=== PATIENT | male | born 1940 | race African-American/Black ===

== ENCOUNTER 2017-02-17 00:44 | Observation (INO) | payer MEDICARE ==
[~2017-02-17] VITALS: Ht 172.7 cm; Wt 92.0 kg
[2017-02-17 00:46] VITALS: BP 134/64; PULSE 62; RESP 16; TEMP 97.6; O2SAT 96
[2017-02-17] MEDS ORDERED: ASPIRIN 81 MG CHEW TAB PO ONE (01:15)
[2017-02-17] MEDS ORDERED: NITROGLYCERIN 2% OINT 1 GM PACKET TOP ONE (01:15)
[2017-02-17] MEDS ORDERED: SODIUM CHLORIDE 0.9% FLUSH 10 ML FLUSH IVF PRN (01:15)
[2017-02-17] MEDS: NITROGLYCERIN 0.4 MG SL 25 TABS/BTL SL SCH ×3 (01:15→01:25)
--- NOTE | 2017-02-17 01:27 | PD ---
HPI Chief Complaint: Chest Pain Time Seen by Provider: 01:03 Travel History International Travel<30 days: No Contact w/Intl Traveler<30days: No Traveled to known affect area: No History of Present Illness HPI The patient is a 76 year old male who presents to the [facility] emergency department with a history of chest pain that began 30 minutes ago and lasted for 10 minutes. He was watching TV when it began. The chest pain was in the left side of the chest and sharp in character. He denies any diaphoresis, radiation of pain, nausea, or shortness of breath associated with this. He reports that he has had a similar chest pain in the past, once 5 years ago and did have a stress test at that time. He denies having any stress testing done since then. He denies having any prior history of myocardial infarction or congestive heart failure. He does report having a history of hypertension and hyperlipidemia. On review of systems, he denies having any recent fevers, cough , congestion, neck pain, abdominal pain, vomiting, diarrhea, urinary symptoms, or neurologic symptoms. [facility] Past Medical History Narrative Medical The patient's past medical history is significant for prostate ca-s/p radiation therapy, hypertension, hyperlipidemia Asthma: Yes Diminished Hearing: No Hypertension: Yes Immunizations Current: Yes Past Surgical History Surgical History: No Previous Surgery Social History Alcohol Use: No Tobacco Use: No Substance Use: No Allergies-Medications (Allergen,Severity, Reaction): Coded Allergies: No Known Allergies (Unverified , 02/17/17) Review of Systems Except as stated in HPI: all other systems reviewed are Neg General / Constitutional: No: Fever Eyes: No: Visual changes HENT: No: Headaches, Congestion Cardiovascular: Positive: Chest Pain or Discomfort, No: Dyspnea on exertion Respiratory: Positive: Cough (couple years due postnasal drip.), No: Shortness of Breath Gastrointestinal: No: Nausea, Vomiting, Diarrhea, Abdominal Pain Genitourinary: No: Dysuria Musculoskeletal: No: Pain Skin: No Rash Neurologic: No: Weakness Psychiatric: No: Depression Endocrine: No: Polydipsia Hematologic/Lymphatic: No: Easy Bruising Physical Exam Narrative General: The patient is a well-developed well-nourished male in no acute distress. Head and Neck exam: Head is normocephalic atraumatic. Eyes: EOMI, pupils are equal round and reactive to light. Nose: Midline septum with pink mucous membranes Mouth: Dentition unremarkable. Moist mucus membranes. Posterior oropharynx is not erythematous. No tonsillar hypertrophy. Uvula midline. Airway patent. Neck: No palpable lymphadenopathy. No nuchal rigidity. No thyromegaly. Cardiovascular: Regular rate and rhythm without murmurs, gallops, or rubs. Lungs: Clear to auscultation bilaterally. No wheezes, rhonchi, or rales. Abdomen: Soft, without tenderness to palpation in all 4 quadrants of the abdomen. No guarding, rebound, or rigidity. Normal bowel sounds are audible. No tenderness on palpation of McBurney's point. Extremities: No clubbing, cyanosis, or edema. 2+ pulses in all 4 extremities. No calf tenderness on palpation. Back: No spinous process tenderness to palpation. No costovertebral angle tenderness to palpation. Neurologic Exam: Grossly nonfocal. Skin Exam: No rash noted. Intact skin that is warm and dry. Data Data Last Documented VS Vital Signs Date Time Temp Pulse Resp B/P (MAP) Pulse Ox O2 Delivery O2 Flow Rate FiO2 02/17/17 00:46 97.6 62 16 134/64 (87) 96 Orders Orders Electrocardiogram (02/17/17 01:10) B-Type Natriuretic Peptide (02/17/17 01:10) Ckmb (Isoenzyme) Profile (02/17/17 01:10) Complete Blood Count With Diff (02/17/17 01:10) Comprehensive Metabolic Panel (02/17/17 01:10) D-Dimer (02/17/17 01:10) Magnesium (Mg) (02/17/17 01:10) Prothrombin Time / Inr (Pt) (02/17/17 01:10) Act Partial Throm Time (Ptt) (02/17/17 01:10) Troponin I (02/17/17 01:10) Lipase (02/17/17 01:10) Chest, Single Ap (02/17/17 01:10) Ecg Monitoring (02/17/17 01:10) Bilateral Bp Monitoring (02/17/17 01:10) Iv Access Insert/Monitor (02/17/17 01:10) Oximetry (02/17/17 01:10) Oxygen Administration (02/17/17 01:10) Aspirin Chew (Aspirin Chew) (02/17/17 01:15) Nitroglycerin 2% Oint (Nitroglycerin 2% (02/17/17 01:15) Sodium Chloride 0.9% Flush (Ns Flush) (02/17/17 01:15) Nitroglycerin Sl (Nitrostat Sl) (02/17/17 01:15) CKMB (02/17/17 01:15) CKMB% (02/17/17 01:15) Sodium Chlorid 0.9% 500 Ml Inj (Ns 500 M (02/17/17 02:30) Ct Pulmonary Angiogram (02/17/17 02:24) Iodixanol 320 Inj (Rad Ct) (Visipaque 32 (02/17/17 02:58) Admit Order (Ed Use Only) (02/17/17 03:02) Labs Laboratory Tests Test 02/17/17 01:15 White Blood Count 3.8 TH/MM3 Red Blood Count 4.09 MIL/MM3 Hemoglobin 13.1 GM/DL Hematocrit 36.9 % Mean Corpuscular Volume 90.1 FL Mean Corpuscular Hemoglobin 32.0 PG Mean Corpuscular Hemoglobin Concent 35.5 % Red Cell Distribution Width 14.2 % Platelet Count 153 TH/MM3 Mean Platelet Volume 9.4 FL Neutrophils (%) (Auto) 61.6 % Lymphocytes (%) (Auto) 19.5 % Monocytes (%) (Auto) 12.4 % Eosinophils (%) (Auto) 5.9 % Basophils (%) (Auto) 0.6 % Neutrophils # (Auto) 2.4 TH/MM3 Lymphocytes # (Auto) 0.7 TH/MM3 Monocytes # (Auto) 0.5 TH/MM3 Eosinophils # (Auto) 0.2 TH/MM3 Basophils # (Auto) 0.0 TH/MM3 CBC Comment DIFF FINAL Differential Comment Prothrombin Time 11.2 SEC Prothromb Time International Ratio 1.0 RATIO Activated Partial Thromboplast Time 27.6 SEC D-Dimer Quantitative (PE/DVT) 0.54 MG/L FEU Blood Urea Nitrogen 14 MG/DL Creatinine 1.69 MG/DL Random Glucose 121 MG/DL Total Protein 6.9 GM/DL Albumin 3.4 GM/DL Calcium Level 8.5 MG/DL Magnesium Level 1.9 MG/DL Alkaline Phosphatase 73 U/L Aspartate Amino Transf (AST/SGOT) 26 U/L Alanine Aminotransferase (ALT/SGPT) 23 U/L Total Bilirubin 0.4 MG/DL Sodium Level 138 MEQ/L Potassium Level 3.3 MEQ/L Chloride Level 104 MEQ/L Carbon Dioxide Level 24.7 MEQ/L Anion Gap 9 MEQ/L Estimat Glomerular Filtration Rate 40 ML/MIN Total Creatine Kinase 175 U/L Creatine Kinase MB 2.0 NG/ML Troponin I 0.03 NG/ML B-Type Natriuretic Peptide 21 PG/ML Lipase 245 U/L MDM Medical Decision Making Medical Screen Exam Complete: Yes Emergency Medical Condition: Yes Medical Record Reviewed: Yes Interpretation(s) Last Impressions CT Angiography 02/17/17 0224 Signed Impressions: Service Date/Time: Friday, February 17, 2017 02:41 - CONCLUSION: Normal examination. Sony Garcia MD Chest X-Ray 02/17/17 0110 Signed Impressions: Service Date/Time: Friday, February 17, 2017 01:15 - CONCLUSION: Normal examination. Sony Garcia MD Differential Diagnosis Acute coronary syndrome, versus pulmonary embolism, versus pneumonia, versus pleurisy, versus new-onset congestive heart failure, versus acid reflux Narrative Course During the course of the patients emergency department visit, the patients history, examination, and differential diagnosis were reviewed with the patient. The patient was placed on a collection systems worker with oximetry and frequent blood pressure monitoring. The patient had IV access obtained and blood work sent for analysis. The patient had an ECG done on arrival. The patient's ECG reveals a sinus rhythm heart rate of 60, left ventricular hypertrophy is noted by voltage criteria. T waves are inverted in lead 2, 3, aVF, V3, V4, V5, V6. QRS duration is 93 ms, QTC 466 ms. The patient was initially provided nitroglycerin 1 inch to the chest wall as the patient reports that the chest pain has improved. Aspirin 243 mg by mouth 1 as the patient reports that he took a low-dose aspirin prior to arrival. The patient was given normal saline a 500 mL bolus 1. The patients laboratory studies were reviewed and remarkable for a white count of 3.8, hemoglobin 13.1, platelets 153 with 12.4 monocytes, eosinophils 5.9, CMP is remarkable for a potassium of 3.3, creatinine 1.69, glucose 121, initial set of cardiac enzymes are negative, BNP 21, lipase 245. PT PTT within normal limits, d-dimer is 0.54. CTA to rule out PE was ordered. Radiology studies were reviewed and remarkable for a chest x-ray shows no evidence of acute cardiopulmonary disease, CTA to rule out PE shows no acute abnormality. The patient was agreeable with the plan to proceed with admission to the chest pain center for rule out serial cardiac enzyme protocol followed by stress testing as his last stress test was approximately 5 years ago. The patients results were discussed with the patient, including the plan of care. I explained that further testing and/ or monitoring is indicated based on the patients history, examination, and/ or laboratory findings. Therefore, I recommended admission for additional evaluation. The patient expressed understanding and was agreeable with this plan. The patient was admitted to the hospital in stable condition and sent to a bed under the care of chest pain center. Diagnosis Primary Impression: Chest pain, rule out acute myocardial infarction Admitting Information Admitting Physician Requests: Dee Dee Moses MD Feb 17, 2017 01:27
[2017-02-17 01:29] LABS: AUTOMATED NEUTROPHIL # 2.4 TH/MM3 (1.8-7.7); BASOPHIL % 0.6 % (0.0-2.0); EOSINOPHIL # 0.2 TH/MM3 (0-0.4); EOSINOPHIL % 5.9 % (0.0-4.0); HEMATOCRIT 36.9 % (39.0-51.0); HEMO FLAGS DIFF FINAL; LYMPH % 19.5 % (9.0-44.0); LYMPHOCYTE # 0.7 TH/MM3 (1.0-4.8); MEAN CELL VOLUME 90.1 FL (80.0-100.0); MEAN CORPUSCULAR HGB CONC 35.5 % (32.0-36.0); MONO % 12.4 % (0.0-8.0); NEUT % 61.6 % (16.0-70.0); PLATELET COUNT 153 TH/MM3 (150-450); RED BLOOD COUNT 4.09 MIL/MM3 (4.50-5.90); RED CELL DISTRIBUTION WIDTH 14.2 % (11.6-17.2); WHITE BLOOD COUNT 3.8 TH/MM3 (4.0-11.0)
--- NOTE | 2017-02-17 01:32 | RADRPT ---
EXAM DATE/TIME: 02/17/2017 01:15 [facility] COMPARISON: No previous studies available for comparison. INDICATIONS : Chest pain. MEDICAL HISTORY : None. SURGICAL HISTORY : None. ENCOUNTER: Initial ACUITY: 1 day PAIN SCORE: 5/10 LOCATION: Bilateral chest FINDINGS: A single view of the chest demonstrates the lungs to be symmetrically aerated without evidence of mas s, infiltrate or effusion. The cardiomediastinal contours are unremarkable. Osseous structures are intact. Tortuous aorta. CONCLUSION: Normal examination. Sony Garcia MD on February 17, 2017 at 1:30 Board Certified Radiologist. This report was verified electronically.
[2017-02-17 01:42] LABS: APTT (PATIENT) 27.6 SEC (24.3-30.1); PROTHROMBIN TIME - PATIENT 11.2 SEC (9.8-11.6)
[2017-02-17 01:50] LABS: ALT (GPT) 23 U/L (12-78); ANION GAP 9 MEQ/L (5-15); AST (GOT) 26 U/L (15-37); BICARBONATE 24.7 MEQ/L (21.0-32.0); BLOOD UREA NITROGEN 14 MG/DL (7-18); CHLORIDE 104 MEQ/L (98-107); GLOMERULAR FILTRATION RATE 40 ML/MIN (>89); MAGNESIUM 1.9 MG/DL (1.5-2.5); POTASSIUM 3.3 MEQ/L (3.5-5.1); SODIUM (NA) 138 MEQ/L (136-145)
[2017-02-17 01:54] LABS: ALKALINE PHOSPHATASE 73 U/L (45-117); CREATINE KINASE 175 U/L (39-308); TOTAL BILIRUBIN ADULT 0.4 MG/DL (0.2-1.0)
[2017-02-17 02:03] VITALS: RESP 19; O2SAT 100
[2017-02-17] MEDS ORDERED: SODIUM CHLORID 0.9% 500 ML INJ 500 ML IV ONE (02:30)
[2017-02-17] MEDS ORDERED: IODIXANOL 320 MG/ML 10 ML VIAL (for Rad CT) IVCONTRAST ONE (02:58)
--- NOTE | 2017-02-17 03:05 | RADRPT ---
EXAM DATE/TIME: 02/17/2017 02:41 [facility] COMPARISON: No previous studies available for comparison. INDICATIONS : Left side chest pain. IV CONTRAST: 50 cc Visipaque (iodixanol) IV RADIATION DOSE: 12.20 CTDIvol (mGy) MEDICAL HISTORY : Hypertension. SURGICAL HISTORY : None. ENCOUNTER: Initial ACUITY: 1 day PAIN SCALE: 5/10 LOCATION: Left chest TECHNIQUE: Volumetric scanning of the chest was performed using a pulmonary embolism protocol MIP images were re constructed. Using automated exposure control and adjustment of the mA and/or kV according to patien t size, radiation dose was kept as low as reasonably achievable to obtain optimal diagnostic quality images. DICOM format image data is available electronically for review and comparison. Follow-up recommendations for detected pulmonary nodules are based at a minimum on nodule size and pa tient risk factors according to Fleischner Society Guidelines. FINDINGS: PULMONARY ARTERIES: No filling defects are seen in the pulmonary arteries through the segmental level. LUNGS: There is no consolidation or pneumothorax . No concerning pulmonary nodule is visualized. PLEURAE: There is no pleural thickening or pleural effusion. MEDIASTINUM: There is good visualization of the great vessels of the middle mediastinum. No evidence of mediastin al or hilar adenopathy/mass. MUSCULOSKELETAL: Within normal limits for patient age. MISCELLANEOUS: The visualized upper abdominal organs demonstrate no acute abnormality. CONCLUSION: Normal examination. Sony Garcia MD on February 17, 2017 at 3:03 Board Certified Radiologist. This report was verified electronically.
[2017-02-17] MEDS ORDERED: LISI2.5T3 PO (04:05)
[2017-02-17] MEDS ORDERED: SODIUM CHLORIDE 0.9% FLUSH 10 ML FLUSH IV FLUSH PRN (05:45)
[2017-02-17 06:00] VITALS: BP 108/59; PULSE 56; RESP 18; O2SAT 98
[2017-02-17 06:23] VITALS: O2SAT 96
[2017-02-17 07:00] VITALS: BP 121/63; PULSE 60; RESP 18; O2SAT 94
[2017-02-17 07:18] LABS: CREATINE KINASE 148 U/L (39-308)
[2017-02-17 07:32] LABS: CKMB 1.7 NG/ML (0.5-3.6)
[2017-02-17] MEDS ORDERED: POTASSIUM CHLORIDE 20 MEQ CONTROLLED RELEASE TAB PO ONE (07:45)
[2017-02-17] MEDS ORDERED: SODIUM CHLORIDE 0.9% FLUSH 10 ML FLUSH IV FLUSH SCH (09:00)
--- NOTE | 2017-02-17 09:07 | HHI.HP ---
HPI Primary Care Physician Imtiaz Ordonez MD Chief Complaint Chest pain History of Present Illness This is a 76-year-old male that presents to ED via private vehicle with complaint of a left-sided sharp chest discomfort that began about 30 minutes prior to arrival to the ED. Last about 15 minutes. No associated shortness of breath, nausea, or diaphoresis. The discomfort did not radiate. Found nothing to worsen or improve it. States he had a similar discomfort couple years ago, cannot recall prior stress testing, but states he was told is related to his blood pressure. States his blood pressure is controlled with lisinopril. Denies recent illness. Denies fevers or chills. Review of Systems General: Patient denies fevers, chills recent, and recent travel HEENT: Patient denies headache, sore throat, difficulty swallowing. Cardiovascular: Has the chest discomfort as mentioned above. Denies sensation of heart beating rapidly or irregularly. No syncope. Denies diaphoresis. Respiratory: Denies shortness of breath or inspirational chest discomfort. Denies coughing wheezing or hemoptysis. GI: Patient denies nausea, vomiting, diarrhea, abdominal pain, bloody stools. Musculoskeletal: Patient denies joint pain or edema. Denies calf pain or edema. Neurovascular: Patient denies numbness, tingling, weakness in extremities. Denies headache. Endocrine: Denies polyuria and polydipsia. Hematologic: Denies easy bruising. Skin: Denies rash or itching. Past Family Social History Allergies: Coded Allergies: No Known Allergies (Unverified , 02/17/17) Past Medical History Hypertension. Denies hyperlipidemia, diabetes, CAD. States he smoked very briefly many years ago. Past Surgical History Noncontributory. Denies prior cardiac catheterization. Reported Medications Reported Meds & Active Scripts Active Reported Lisinopril 2.5 Mg Tab Unknown Dose PO DAILY Active Ordered Medications Current Medications Medications (Trade) Dose Ordered Sig/Angie Route Start Time Stop Time Status Last Admin (NS Flush) 2 ml UNSCH PRN IVF 02/17/17 01:15 (NS Flush) 2 ml UNSCH PRN IV FLUSH 02/17/17 05:45 (NS Flush) 2 ml BID IV FLUSH 02/17/17 09:00 02/17/17 08:01 Family History Denies family history of CAD. Social History He is a nonsmoker. States he smoked very briefly in his late teens early 20s. Denies alcohol or illicit drugs. Physical Exam Vital Signs Vital Signs Date Time Temp Pulse Resp B/P (MAP) Pulse Ox O2 Delivery O2 Flow Rate FiO2 02/17/17 07:00 60 18 121/63 (82) 94 Room Air 02/17/17 06:23 96 21 02/17/17 06:00 56 18 108/59 (75) 98 Room Air 02/17/17 02:03 19 100 Nasal Cannula 2.00 02/17/17 02:03 100 Nasal Cannula 2.00 02/17/17 00:46 97.6 62 16 134/64 (87) 96 Physical Exam GENERAL: This is a well-nourished, well-developed patient, in no apparent distress. Patient speaks in clear complete sentences. Patient is pleasant. HEENT: Head is atraumatic and normocephalic. Neck is supple without lymphadenopathy and trachea is midline. No JVD or carotid bruits. CARDIOVASCULAR: Regular rate and rhythm without murmurs, gallops, or rubs. RESPIRATORY: Clear to auscultation. Breath sounds equal bilaterally. No wheezes , rales, or rhonchi. Chest wall is nontender. No use of accessory muscles. GASTROINTESTINAL: Abdomen is nontender, nondistended. Abdomen soft. No obvious pulsatile mass or bruit. No CVA tenderness. Strong femoral pulses bilaterally. Normal bowel sounds in all quadrants. MUSCULOSKELETAL: Patient is moving upper and lower extremities freely. No calf tenderness or edema, no Homans sign. Strong pulses in upper and lower extremities. NEUROLOGICAL: Patient is alert and oriented. Cranial nerves 2-12 are grossly intact. No focal deficits and speech is clear. SKIN: No rash and turgor is normal. Laboratory Laboratory Tests Test 02/17/17 01:15 02/17/17 06:15 White Blood Count 3.8 Red Blood Count 4.09 Hemoglobin 13.1 Hematocrit 36.9 Mean Corpuscular Volume 90.1 Mean Corpuscular Hemoglobin 32.0 Mean Corpuscular Hemoglobin Concent 35.5 Red Cell Distribution Width 14.2 Platelet Count 153 Mean Platelet Volume 9.4 Neutrophils (%) (Auto) 61.6 Lymphocytes (%) (Auto) 19.5 Monocytes (%) (Auto) 12.4 Eosinophils (%) (Auto) 5.9 Basophils (%) (Auto) 0.6 Neutrophils # (Auto) 2.4 Lymphocytes # (Auto) 0.7 Monocytes # (Auto) 0.5 Eosinophils # (Auto) 0.2 Basophils # (Auto) 0.0 CBC Comment DIFF FINAL Differential Comment Prothrombin Time 11.2 Prothromb Time International Ratio 1.0 Activated Partial Thromboplast Time 27.6 D-Dimer Quantitative (PE/DVT) 0.54 Blood Urea Nitrogen 14 Creatinine 1.69 Random Glucose 121 Total Protein 6.9 Albumin 3.4 Calcium Level 8.5 Magnesium Level 1.9 Alkaline Phosphatase 73 Aspartate Amino Transf (AST/SGOT) 26 Alanine Aminotransferase (ALT/SGPT) 23 Total Bilirubin 0.4 Sodium Level 138 Potassium Level 3.3 Chloride Level 104 Carbon Dioxide Level 24.7 Anion Gap 9 Estimat Glomerular Filtration Rate 40 Total Creatine Kinase 175 148 Creatine Kinase MB 2.0 1.7 Troponin I 0.03 0.03 B-Type Natriuretic Peptide 21 Lipase 245 Result Diagram: 02/17/1711402/17/17114 Imaging Last [address] Angiography 02/17/17223 Signed Impressions: Service Date/Time: Friday, February 17, 2017 02:41 - CONCLUSION: Normal examination. Sony Garcia MD Chest X-Ray 02/17/17109 Signed Impressions: Service Date/Time: Friday, February 17, 2017 01:15 - CONCLUSION: Normal examination. Sony Garcia MD Course EKGs have sinus rhythm with pattern of LVH. Caprini VTE Risk Assessment Caprini VTE Risk Assessment: Mod/High Risk (score >= 2) Caprini Risk Assessment Model Point Value = 1 Point Value = 2 Point Value = 3 Point Value = 5 Age 41-60 Minor surgery BMI > 25 kg/m2 Swollen legs Varicose veins or History of unexplained or recurrent spontaneous Oral contraceptives or hormone replacement Sepsis (< 1 month) Serious lung disease, including pneumonia (< 1 month) Abnormal pulmonary function Acute myocardial infarction Congestive heart failure (< 1 month) History of inflammatory bowel disease Medical patient at bed rest Age 61-74 Arthroscopic surgery Major open surgery (> 45 min) Laparoscopic surgery (> 45 min) Malignancy Confined to bed (> 72 hours) Immobilizing plaster cast Central venous access Age >= 75 History of VTE Family history of VTE Factor V Leiden Prothrombin [id number] Lupus anticoagulant Anticardiolipin antibodies Elevated serum homocysteine Heparin-induced thrombocytopenia Other congenital or acquired thrombophilia Stroke (< 1 month) Elective arthroplasty Hip, pelvis, or leg fracture Acute spinal cord injury (< 1 month) Prophylaxis Regimen Total Risk Factor Score Risk Level Prophylaxis Regimen 0-1 Low Early ambulation 2 Moderate Order ONE of the following: *Sequential Compression Device (SCD) *Heparin 5000 units SQ BID 3-4 Higher Order ONE of the following medications: *Heparin 5000 units SQ TID *Enoxaparin/Lovenox 40 mg SQ daily (WT < 150 kg, CrCl > 30 mL/min) *Enoxaparin/Lovenox 30 mg SQ daily (WT < 150 kg, CrCl > 10-29 mL/min) *Enoxaparin/Lovenox 30 mg SQ BID (WT < 150 kg, CrCl > 30 mL/min) AND/OR *Sequential Compression Device (SCD) 5 or more Highest Order ONE of the following medications: *Heparin 5000 units SQ TID (Preferred with Epidurals) *Enoxaparin/Lovenox 40 mg SQ daily (WT < 150 kg, CrCl > 30 mL/min) *Enoxaparin/Lovenox 30 mg SQ daily (WT < 150 kg, CrCl > 10-29 mL/min) *Enoxaparin/Lovenox 30 mg SQ BID (WT < 150 kg, CrCl > 30 mL/min) AND *Sequential Compression Device (SCD) Assessment and Plan Assessment and Plan * Chest pain: Patient has had serial cardiac enzymes and EKGs for ruling out purposes. He has been seen by Dr. Perez cardiology in the chest pain center and will undergo a Lexiscan myocardial perfusion stress test. He'll be discharged home if the stress test is nonischemic with instructions to follow- up with PCP but return to ED for interval issues. * Hypertension: Continue current medication. Patient is stable at this time. He is agreeable to this plan. Aldo Connor Feb 17, 2017 09:07
[2017-02-17 11:35] LABS: CREATINE KINASE 143 U/L (39-308)
[2017-02-17 11:49] LABS: CKMB 1.8 NG/ML (0.5-3.6)
[2017-02-17] MEDS ORDERED: REGADENOSON INJ 0.4 MG/5 ML SYR ONE (12:39)
--- NOTE | 2017-02-17 13:45 | RADRPT ---
EXAM DATE/TIME: 02/17/2017 12:18 [facility] COMPARISON: No previous studies available for comparison. INDICATIONS : Substernal chest pain. Angina. DOSE: 25.5 mCi Tc99m Myoview at stress. 8.5 mCi Tc99m Myoview at rest. 0.4 mg Lexiscan STRESS SYMPTOMS: Shortness of breath. EJECTION FRACTION: 53% MEDICAL HISTORY : Hypertension. SURGICAL HISTORY : None. ENCOUNTER: Initial ACUITY: 1 day PAIN SCALE: 6/10 LOCATION: Substernal chest TECHNIQUE: The patient underwent pharmacologic stress with infusion of prescribed dose. Continuous ECG tracing was monitored during stress. Gated SPECT imaging was performed after stress and conventional SPECT i maging was performed at rest. The examination was performed on a SPECT/CT scanner, both attenuation and non-corrected datasets were reviewed. FINDINGS: Moderate gut activity does obscure the inferior wall. The best perfused myocardium in the anterior and anterior lateral wall. There is minimal redistribut ion in the inferior towards the base involving the small segment myocardium. There is minimal hypoki nesis across this segment. Ejection fraction is 53%. CONCLUSION: Minimal stress-induced ischemia borderline significance . RISK CATEGORY: Low (<1% Annual Mortality Rate) Jasson Marquez MD FACR on February 17, 2017 at 13:41 Board Certified Radiologist. This report was verified electronically.
[2017-02-17 14:16] VITALS: BP 150/73; PULSE 68; RESP 18; TEMP 97.7; O2SAT 97
[2017-02-17] MEDS ORDERED: AMLO5TAB2 PO (16:22)
--- NOTE | 2017-02-17 16:22 | EKG ---
Date Performed: 02/17/2017 Time Performed: 01:04:27 PTAGE: 76 years EKG: Sinus rhythm LEFT VENTRICULAR HYPERTROPHY ST-T CHANGE FROM LVH or ISCHEMIA ABNORMAL ECG NO PREVIOUS TRACING DOCTOR: Jessica Perez Interpretating Date/Time 02/17/2017 16:21:40
--- NOTE | 2017-02-17 16:22 | HHI.DCPOC ---
Discharge Care Plan Diagnosis: (1) Chest pain (2) Hypertension Goals to Promote Your Health * To prevent worsening of your condition and complications * To maintain your health at the optimal level Directions to Meet Your Goals Take your medications as prescribed Follow your dietary instruction Follow activity as directed Keep your appointments as scheduled Take your immunizations and boosters as scheduled If your symptoms worsen call your PCP, if no PCP go to Urgent Care Center or Emergency Room Smoking is Dangerous to Your Health. Avoid second hand smoke Call the 24-hour hour crisis hotline for domestic abuse at Aldo Connor Feb 17, 2017 16:22
--- NOTE | 2017-02-17 16:23 | EKG ---
Date Performed: 02/17/2017 Time Performed: 06:17:24 PTAGE: 76 years EKG: Sinus rhythm LEFT VENTRICULAR HYPERTROPHY AND ST-T CHANGE POSSIBLE SEPTAL MYOCARDIAL INFARCTION ABNORMAL ECG Sinc e PREVIOUS TRACING , no significant change noted PREVIOUS TRACIN02/17/2017 01.04 DOCTOR: Jsesica Perez Interpretating Date/Time 02/17/2017 16:22:23
--- NOTE | 2017-02-17 16:31 | EKG ---
Date Performed: 02/17/2017 Time Performed: 11:02:05 PTAGE: 76 years EKG: Sinus rhythm LEFT VENTRICULAR HYPERTROPHY AND ST-T CHANGE ABNORMAL ECG Since PREVIOUS TRACING , no significant change noted PREVIOUS TRACIN02/17/2017 06.17 DOCTOR: Jessica Perez Interpretating Date/Time 02/17/2017 16:30:53
--- NOTE | 2017-02-17 16:34 | TR ---
Date Performed: 02/17/2017 Time Performed: 12:36:53 DOCTOR: Jessica Perez DRUG LIST: CLINICAL HISTORY: ANGINA REASON FOR TEST: Angina REASON FOR ENDING: OBSERVATION: CONCLUSION: Lexiscan stress test was performed under standard four minute protocol. Radionuclid e was injected one minute prior to ending the test. No electrocardiographic abormalities were present to suggest ischemia. Nuclear imaging and interpretation are pending. COMMENTS:
== END 2017-02-17 18:34 | disposition home or self-care (01) ==
LOC: NEPE 00:44 → NEDA 03:03 → NEDH 09:35 → NEDA 13:57 → NEPFCDU 14:52
PROVIDERS: ADMIT Internal Medicine Interventional Cardiology; ATTEND Internal Medicine Interventional Cardiology
DX: R07.89 Other chest pain (principal); R06.02 Shortness of breath; I11.9 Hypertensive heart disease without heart failure; R94.31 Abnormal electrocardiogram [ECG] [EKG]; E78.5 Hyperlipidemia, unspecified; I20.9 Angina pectoris, unspecified; J45.909 Unspecified asthma, uncomplicated; Z92.3 Personal history of irradiation; Z85.46 Personal history of malignant neoplasm of prostate; Z87.891 Personal history of nicotine dependence; Z79.899 Other long term (current) drug therapy
CPT/HCPCS: 71010; 71275; 78452; 80053; 82550; 82552; 83690; 83735; 83880; 84484; 85025; 85379; 85610; 85730; 93005; 93017; 96360; A9502; G0378; J2785; J7040; Q9967; 99281

== ENCOUNTER 2017-10-01 15:55 | Observation (INO) ==
[2017-10-01] MEDS ORDERED: Iohexol 350 MG/ML 50 ML Vial (for Cath Lab) IV.SIG ONE (15:57)
[2017-10-03] MEDS ORDERED: Heparin - SQ 10,000 UNITS/ML Vial SQ ONE (01:26)
[2017-10-03] MEDS ORDERED: Morphine Inj 4 MG/ML Vial IV.PUSH PRN (02:55)
[2017-10-03] MEDS: Sod Chloride 0.9% Inj 1,000 ML IV.SIG SCH ×2 (03:09→13:03)
[2017-10-03 08:40] LABS: Calcium 8.4 mg/dL (8.5-10.1); Carbon Dioxide 22.2 meq/L (21.0-32.0); Potassium 3.9 meq/L (3.5-5.1)
--- NOTE | 2017-10-03 08:43 | P.PN ---
Subjective Interval history: Follow up for chest pain. The patient reports no further episodes of chest pain. Denies any shortness of breath, cough, lower extremity edema. He states he is urinating frequently while on IVF. Denies any other medical complaints. He is looking forward to proceeding with cardiac catheterization tomorrow. Physical Exam Vital signs: Vital Signs 10/02/17 20:00 10/02/17 23:00 10/03/17 03:45 Temperature 97.7 F Pulse Rate 81 64 70 Respiratory Rate 16 Blood Pressure 139/70 Pulse Oximetry 97 10/03/17 04:00 Temperature Pulse Rate 77 Respiratory Rate Blood Pressure Pulse Oximetry Intake & Output 10/02/17 10/03/17 10/03/17 18:59 06:59 18:59 Weight 86 kg Narrative: GENERAL: Well-nourished, well-developed pleasant elderly male patient in [employer]. SKIN: Warm and dry. No rash. HEENT: Normocephalic. Atraumatic. Pupils equal and round. Mucous membranes pink and moist. CARDIOVASCULAR: Regular rate and rhythm. No murmur appreciated. RESPIRATORY: No accessory muscle use. Clear to auscultation. Breath sounds equal bilaterally. GASTROINTESTINAL: Abdomen soft, non-tender, nondistended. Normoactive bowel sounds x4. MUSCULOSKELETAL: No obvious deformities. Extremities without clubbing, cyanosis , or edema. NEUROLOGICAL: Awake and alert. No obvious cranial nerve deficits. Motor grossly within normal limits. Moving all extremities spontaneously. Normal speech. PSYCHIATRIC: Appropriate mood and affect; insight and judgment normal. Results - Labs CBC & Chem 7: 10/01/17 13:30 10/03/17 07:41 Labs: Laboratory Results - last 24 hr 10/01/17 10/01/17 10/01/17 13:30 13:30 13:30 WBC RBC Hgb Hct MCV MCH MCHC RDW Plt Count MPV Neut % (Auto) Lymph % (Auto) [place] % (Auto) Eos % (Auto) Baso % (Auto) Neut # (Auto) Lymph # (Auto) [place] # (Auto) Eos # (Auto) Baso # (Auto) CBC Comment PT 10.7 INR 1.1 APTT 27.6 D-Dimer Quant (PE/DVT) 0.42 Sodium 136 Potassium 3.8 Chloride 103 Carbon Dioxide 23.5 Anion Gap 10 BUN 28 H Creatinine 2.79 H Estimated GFR 27 L Random Glucose 113 H Calcium 8.9 Magnesium 2.1 Total Bilirubin 0.6 AST 30 ALT 31 Alkaline Phosphatase 84 Total Creatine Kinase 438 H CK-MB (CK-2) 2.5 CK-MB (CK-2) % 0.6 Troponin I 0.05 B-Natriuretic Peptide 47 Total Protein 7.7 Albumin 3.8 Triglycerides Cholesterol LDL Cholesterol HDL Cholesterol Cholesterol/HDL Ratio Lipase 252 10/01/17 10/01/17 10/02/17 13:30 20:00 01:30 WBC 5.9 RBC 4.54 Hgb 14.0 Hct 40.7 MCV 89.6 MCH 30.7 MCHC 34.3 RDW 13.8 Plt Count 180 MPV 10.2 Neut % (Auto) 79.8 H Lymph % (Auto) 10.3 [place] % (Auto) 8.0 Eos % (Auto) 1.5 Baso % (Auto) 0.4 Neut # (Auto) 4.7 Lymph # (Auto) 0.6 L [place] # (Auto) 0.5 Eos # (Auto) 0.1 Baso # (Auto) 0.0 CBC Comment DIFF FINAL PT INR APTT D-Dimer Quant (PE/DVT) Sodium Potassium Chloride Carbon Dioxide Anion Gap BUN Creatinine Estimated GFR Random Glucose Calcium Magnesium Total Bilirubin AST ALT Alkaline Phosphatase Total Creatine Kinase CK-MB (CK-2) CK-MB (CK-2) % Troponin I 0.04 0.05 B-Natriuretic Peptide Total Protein Albumin Triglycerides Cholesterol LDL Cholesterol HDL Cholesterol Cholesterol/HDL Ratio Lipase 10/02/17 10/03/17 06:50 07:41 WBC RBC Hgb Hct MCV MCH MCHC RDW Plt Count MPV Neut % (Auto) Lymph % (Auto) [place] % (Auto) Eos % (Auto) Baso % (Auto) Neut # (Auto) Lymph # (Auto) [place] # (Auto) Eos # (Auto) Baso # (Auto) CBC Comment PT INR APTT D-Dimer Quant (PE/DVT) Sodium 141 143 Potassium 3.7 3.9 Chloride 112 H D 112 H Carbon Dioxide 21.4 22.2 Anion Gap 8 9 BUN 21 H 17 Creatinine 1.79 H D 1.50 H Estimated GFR 45 L 55 L Random Glucose 90 84 Calcium 8.3 L 8.4 L Magnesium Total Bilirubin AST ALT Alkaline Phosphatase Total Creatine Kinase CK-MB (CK-2) CK-MB (CK-2) % Troponin I B-Natriuretic Peptide Total Protein Albumin Triglycerides 68 Cholesterol 140 LDL Cholesterol 78 HDL Cholesterol 48.2 Cholesterol/HDL Ratio 2.90 Lipase - Imaging Imagin10/01/17 - CXR with no acute findings, lungs clear Assessment and Plan - Plan 77-year-old male with history of HTN, HLD, CKD, presents with acute onset of chest pain Chest pain/Angina: Acute, relieved by nitroglycerin and rest. -EMR reviewed, nuclear stress test 02/17/17 showed minimal stress-induced ischemia, borderline significance. -Troponins trended, 0.05, 0.04, 0.05, mild elevation possibly secondary to CKD -EKG reviewed, shows ST inversions in V2 to V6; although unchanged from previous EKGs -Monitor on telemetry -Give aspirin, BB, statin, nitro prn, IV morphine prn -With recent mildly abnormal Lexiscan and recurrent chest pain, consulted cardiology -Discussed with Dr. Henley, likely plan for cardiac catheterization on Wednesday 10/04 RAZIA on CKD stage III: Cr 2.79 upon arrival, suspect secondary to dehydration. -Give IVF hydration -Avoid nephrotoxins -Holding patient's lisinopril and lasix for now -Monitor BMP, repeat labs show improvement with Cr 1.50, likely patient's baseline, will decrease fluid rate from 100cc to 50cc/hr Hypertension: BP currently well controlled -continue patient's metoprolol, norvasc -holding lisinopril and lasix for now with RAZIA -monitor BP, adjust antihypertensives as needed Hyperlipidemia: chronic -continue patient's statin DVT Prophylaxis: Heparin sq Discharge Planning: Plan for cardiac catheterization tomorrow 10/04. Further disposition to follow.
[2017-10-03] MEDS: amLODIPine 5 MG Tablet PO SCH (08:55)
[2017-10-03] MEDS: Metoprolol Tartrate 25 MG Tablet PO SCH ×2 (08:56→21:49)
[2017-10-03] MEDS: Heparin - SQ 10,000 UNITS/ML Vial SQ SCH ×2 (08:56→18:38)
--- NOTE | 2017-10-03 13:09 | ECHRPT ---
Indication: ABNORMAL EKG CONCLUSIONS Normal left ventricular size. Mild concentric left ventricular hypertrophy. The left ventricular systolic function is low normal with an estimated ejection fraction in the rang e of 50- 55%. There is apical hypokinesis with distinct regional wall motion abnormalities. Aortic valve sclerosis is present. The estimated pulmonary arterial pressure is 31 mmHg. The pulmonary valve is not well visualized. BP: / HR: Rhythm: MEASUREMENTS (Male / Female) Normal Values Technical Quality: 2D ECHO LV Diastolic Diameter PLAX 4.2 cm 4.2 - 5.9 / 3.9 - 5.3 cm LV Systolic Diameter PLAX 3.3 cm IVS Diastolic Thickness 1.4 cm 0.6 - 1.0 / 0.6 - 0.9 cm LVPW Diastolic Thickness 0.7 cm 0.6 - 1.0 / 0.6 - 0.9 cm LV Relative Wall Thickness 0.5 RV Internal Dim ED PLAX 2.3 cm LA Systolic Diameter LX 3.5 cm 3.0 - 4.0 / 2.7 - 3.8 cm M-MODE Aortic Root Diameter MM 3.2 cm AV Cusp Separation MM 1.7 cm DOPPLER Mitral E Point Velocity 69.6 cm/s Mitral A Point Velocity 77.5 cm/s Mitral E to A Ratio 0.9 TR Peak Velocity 255.0 cm/s TR Peak Gradient 26.0 mmHg FINDINGS LEFT VENTRICLE Normal left ventricular size. Mild concentric left ventricular hypertrophy. The left ventricular systolic function is low normal with an estimated ejection fraction in the rang e of 50- 55%. There is apical hypokinesis with distinct regional wall motion abnormalities. RIGHT VENTRICLE Normal right ventricular size and systolic function. LEFT ATRIUM The left atrial size is normal. RIGHT ATRIUM The right atrial size is normal. ATRIAL SEPTUM Normal atrial septal thickness without atrial level shunting by limited color doppler interrogation. AORTA The aortic root and proximal ascending aorta are normal in size on limited imaging. MITRAL VALVE Structurally normal mitral valve. No mitral valve stenosis or regurgitation. AORTIC VALVE Aortic valve sclerosis is present. TRICUSPID VALVE The estimated pulmonary arterial pressure is 31 mmHg. PULMONARY VALVE The pulmonary valve is not well visualized. VESSELS The inferior vena cava is normal in size. PERICARDIUM No pericardial effusion. Sony Washington MD, FACC (Electronically Signed) Final Date:03 October 2017 13:08
--- NOTE | 2017-10-03 15:54 | P.PNCA ---
Subjective Interval history: No events overnight Feels well Physical Exam Vital signs: Vital Signs 10/02/17 20:00 10/02/17 23:00 10/03/17 03:45 Temperature 97.7 F Pulse Rate 81 64 70 Respiratory Rate 16 Blood Pressure 139/70 Pulse Oximetry 97 10/03/17 04:00 10/03/17 08:00 10/03/17 12:00 Temperature 98.0 F 97.7 F Pulse Rate 77 68 56 L Respiratory Rate 16 18 Blood Pressure 147/82 H 137/75 Pulse Oximetry 96 94 L Intake & Output 10/02/17 10/03/17 10/03/17 18:59 06:59 18:59 Intake Total 1000 / 1000 Balance 1000 / 1000 Weight 86 kg Intake: IV 1000 / 1000 NS Inj 1,000 ML @ 50 mls/hr IV. 1000 / 1000 SIG .Q20H TORIE Rx#:[id number] Narrative: GENERAL: NAD, AAOx3 SKIN: Warm and dry. HEAD: Atraumatic. Normocephalic. EYES: Pupils equal and round. No scleral icterus. No injection or drainage. ENT: No nasal bleeding or discharge. Mucous membranes pink and moist. NECK: Trachea midline. No JVD. CARDIOVASCULAR: Regular rate and rhythm. RESPIRATORY: No accessory muscle use. Clear to auscultation. Breath sounds equal bilaterally. GASTROINTESTINAL: Abdomen soft, non-tender, nondistended. Hepatic and splenic margins not palpable. MUSCULOSKELETAL: Extremities without clubbing, cyanosis, or edema. No obvious deformities. NEUROLOGICAL: Awake and alert. No obvious cranial nerve deficits. Motor grossly within normal limits. Five out of 5 muscle strength in the arms and legs. Normal speech. PSYCHIATRIC: Appropriate mood and affect; insight and judgment normal. Assessment and Plan - Assessment (1) Abnormal stress test Code(s): R94.39 - Abnormal result of other cardiovascular function study Status: Acute (2) Chest pain Code(s): R07.9 - Chest pain, unspecified Status: Acute (3) Angina pectoris Code(s): I20.9 - Angina pectoris, unspecified Status: Acute (4) CKD (chronic kidney disease) Code(s): N18.9 - Chronic kidney disease, unspecified Status: Acute - Plan 1) Typical angina on multiple anti-anginals Stress test showing minimal ischemia previously Plan for [facility] with possible PCI tomorrow Risks, benefits and alternatives discussed 2) RAZIA/CKD Creatinine somewhat better Depending on contrast use, may need to stage intervention if large contrast load Understands risk of significant RAZIA or possibility of kidney failure requiring HD
[2017-10-04] MEDS: Heparin - SQ 10,000 UNITS/ML Vial SQ SCH (01:00)
[2017-10-04 05:40] LABS: Calcium 8.7 mg/dL (8.5-10.1); Carbon Dioxide 23.4 meq/L (21.0-32.0)
[2017-10-04] MEDS: amLODIPine 5 MG Tablet PO SCH (08:12)
[2017-10-04] MEDS: Metoprolol Tartrate 25 MG Tablet PO SCH (08:12)
[2017-10-04] MEDS ORDERED: Heparin/NS PF Inj 1,500 ML ONE (08:31)
[2017-10-04] MEDS ORDERED: Heparin 10,000 UNITS/10 ML Vial (for IV use) ONE (08:31)
--- NOTE | 2017-10-04 08:34 | P.PN ---
Subjective Interval history: Follow up for chest pain. The patient denies any further chest pains overnight. Denies any headache, lightheadedness, dizziness, shortness of breath, or abdominal complaints. Voiding well. Going for heart catheterization today. Physical Exam Vital signs: Vital Signs 10/03/17 12:00 10/03/17 16:00 10/03/17 22:39 Temperature 97.7 F 98.9 F 98.6 F Pulse Rate 56 L 65 74 Respiratory Rate 18 13 16 Blood Pressure 137/75 156/78 H 137/70 Pulse Oximetry 94 L 96 94 L 10/04/17 01:31 10/04/17 05:14 Temperature 98.7 F 98.6 F Pulse Rate 63 65 Respiratory Rate 17 16 Blood Pressure 129/74 116/66 Pulse Oximetry 93 L 97 Intake & Output 10/03/17 10/04/17 10/04/17 18:59 06:59 18:59 Intake Total 1000 / 1000 Balance 1000 / 1000 Intake: IV 1000 / 1000 NS Inj 1,000 ML @ 50 mls/hr IV. 1000 / 1000 SIG .Q20H TORIE Rx#:[id number] Other: # Voids 4 Date of Last Bowel Movement 10/03/17 Narrative: GENERAL: Well-nourished, well-developed pleasant elderly male patient in [facility]. SKIN: Warm and dry. No rash. HEENT: Normocephalic. Atraumatic. Pupils equal and round. Mucous membranes pink and moist. CARDIOVASCULAR: Regular rate and rhythm. No murmur appreciated. RESPIRATORY: No accessory muscle use. Clear to auscultation. Breath sounds equal bilaterally. GASTROINTESTINAL: Abdomen soft, non-tender, nondistended. MUSCULOSKELETAL: No obvious deformities. Extremities without clubbing, cyanosis , or edema. NEUROLOGICAL: Awake and alert. No obvious cranial nerve deficits. Motor grossly within normal limits. Moving all extremities spontaneously. Normal speech. PSYCHIATRIC: Appropriate mood and affect; insight and judgment normal. Results - Labs CBC & Chem 7: 10/01/17 13:30 10/04/17 04:35 Laboratory Results - last 24 hr 10/03/17 10/04/17 07:41 04:35 Sodium 143 141 Potassium 3.9 4.0 Chloride 112 H 110 H Carbon Dioxide 22.2 23.4 Anion Gap 9 8 BUN 17 16 Creatinine 1.50 H 1.50 H Estimated GFR 55 L 55 L Random Glucose 84 84 Calcium 8.4 L 8.7 Assessment and Plan - Plan 77-year-old male with history of HTN, HLD, CKD, presents with acute onset of chest pain Chest pain/Angina: Acute, relieved by nitroglycerin and rest. -EMR reviewed, nuclear stress test 02/17/17 showed minimal stress-induced ischemia, borderline significance. -Troponins trended, 0.05, 0.04, 0.05, mild elevation possibly secondary to CKD -EKG reviewed, shows ST inversions in V2 to V6; although unchanged from previous EKGs -Monitor on telemetry -Give aspirin, BB, statin, nitro prn, IV morphine prn -With recent mildly abnormal Lexiscan and recurrent chest pain, consulted cardiology -Discussed with Dr. Henley, plan for cardiac catheterization today 10/04 -Chest pain resolved. RAZIA on CKD stage III: Cr 2.79 upon arrival, suspect secondary to dehydration. -Give IVF hydration -Avoid nephrotoxins -Holding patient's lisinopril and lasix for now -Monitor BMP, repeat labs show improvement with Cr 1.50, likely patient's baseline, decreased fluid rate from 100cc to 50cc/hr Hypertension: BP currently well controlled -continue patient's metoprolol, norvasc -holding lisinopril and lasix for now with RAZIA -monitor BP, adjust antihypertensives as needed Hyperlipidemia: chronic -continue patient's statin DVT Prophylaxis: Heparin sq Discharge Planning: Plan for cardiac catheterization today, further disposition to follow.
[2017-10-04] MEDS ORDERED: fentaNYL Citrate Inj 100 MCG/2 ML Ampul ONE (08:35)
[2017-10-04] MEDS ORDERED: Lidocaine PF 1% Inj 30 ML Vial ONE (08:39)
--- NOTE | 2017-10-04 09:15 | CATHPROC ---
[employer] HIS Report Study Information Study Number Admission Scheduled Start Study Start [id number] Oct 01 2017 3:56PM 10/04/2017 Oct 04 2017 8:15AM [facility] Cardiac Catheterization Admit Source Facility Department Emergency department [facility] - Parking Meter Installer Physician and Clinical Staff Initial Rich Calhoun Central Sterilization Technician Bandar Christian,NANCY Recorder Taurus Jefferson,RT(R) Scrub Kishor Sandoval,RT(R) Procedures Performed Procedure Location (Site) Vessel Name Coronary Angiograms LCA Left Coronary Equipment Time Help Desk Technician Description Size Mfg Part Number Used/Scraped TRANSDUCER, TRUWAVE [id number] 08:16 WHITLEY DALY * Used W/STOCKCOCK *[id number] TRANSDUCER, TRUWAVE [id number] 08:40 WHITLEY DALY * Used W/STOCKCOCK *[id number] [id number] *[id number] 534-521T *[id number] 08:16 [employer] BLANKET,WARM AIR CCL * Used *[id number] 08:40 [employer] BLANKET,WARM AIR CCL * Used *[id number] 08:40 [employer] PACK, CCL CUSTOM * Used *[id number] 08:40 [employer] SUPPORT, ARTERIAL ADULT 48999 *[id number] Used 08:16 [employer] SUPPORT, ARTERIAL ADULT 74142 *[id number] Used BAND, RADIAL COMPRESSION TR [id number] 09:00 [employer] MEDICAL 24CM Used SHORT 24 *[id number] 08:40 [employer] MED[employer] WIRE, EXCHANGE 260CM 3MMJ 260CM Used *[id number] 08:16 [employer] MED[employer] WIRE, EXCHANGE 260CM 3MMJ 260CM Used *[id number] 08:40 [employer]AMIC MANIFOLD, 4 PORT * Used *[id number] 08:16 [employer] OMNIPAQUE, 350 MG, 150ML 150ML [id number] Used 08:40 [employer] OMNIPAQUE, 350 MG, 150ML 150ML [id number] Used SHEATH, FR6 TRANSRADIAL [id number] 08:16 [employer] MEDICAL FR 6 Used SLENDER 10CM *[id number] History: Allergies Allergy Reaction No Known Allergies History: Risk Factors Family History of Hypertension Dyslipidemia Previous TN Previous Heart Failure Premature CAD Yes No No No No Prior Valve Prior PCI Prior CABG Surgery No No No Cerebrovascular Peripheral Artery Chronic Lung On Dialysis Diabetes Disease Disease Disease No No No No No History: Stress Tests Stress or Imaging Studies Performed Yes Standard Exercise Stress Test No Stress Echo No Stress Test SPECT Stress Test SPECT Result Stress Test SPECT Ischemia Risk/Extent Yes Positive Low Stress Test CMR No Cardiac CTA Coronary Calcium Score No No History: Other Current Smoker No Labs Hgb (g/dl) Hct (%) WBC (l/cumm) Platelets (thousands) 11.60-17.00 35.00-51.00 4.00-11.00 150.00-450.00 14.0 40.7 5.9 180 Glucose (mg/dl) BUN (mg/dl) Creatinine (mg/dl) BUN:Creatinine (1:x) 74.00-106.00 7.00-18.00 0.50-1.30 10.00-20.00 84 16 1.5 10.7 Na (meq/l) K (meq/l) 136.00-145.00 3.50-5.10 141 4 INR (PTT:PT) 0.90-1.10 1.1 Troponin I (ng/ml) CPK-MB (ng/ML) 0.02-0.05 0.50-3.60 0.05 Not Drawn Medication Medication Total Dose (Bolus/Oral) Medication Total Dosage/Unit 1% XYLOCAINE 10 mL FENTANYL 25 mcg RADIAL COCKTAIL 1 units VERSED 0.5 mg Medications (Bolus/Oral) Medication Time Given Dosage/Unit Administered By Reason 1% XYLOCAINE 10/04/2017 8:46:59 AM 10 mL Rich Henley 10 mL 1% XYLOCAINE given in lab by Rich Henley in Right Radial via Subcutaneous. Ordered by Rich Paul VERSED 10/04/2017 8:47:12 AM 0.5 mg Bandar Christian 0.5 mg VERSED given in lab by Bandar Christian RN via Peripheral IV. Ordered by Rich Henley FENTANYL 10/04/2017 8:48:23 AM 25 mcg Bandar Christian 25 mcg FENTANYL given in lab by Bandar Christian, NANCY via Peripheral IV. Ordered by Rich Henley RADIAL COCKTAIL 10/04/2017 8:50:32 AM 1 units Bandar Christian 1 units RADIAL COCKTAIL given in lab by Bandar Christian RN via Radial. Ordered by Rich Henley . 3400 units Heparin, 200mcg Nitro. 2.5 mg Verapamil. Medication (Drip) Medication Time Given Dosage/Unit Concentration/Unit Diluent (ml) Solution IV Solutions 10/04/2017 8:26:34 AM 0 mL (IV) 500 NaCl .9 Patient arrived on IV Solutions given by Rich Henley in Right Antecubital via Peripheral IV. Pump/Drip Flow = 20 ml/hr using NaCl .9. Ordered by Rich Henley. Final Case Assessment Cardiovascular HR Rhythm NIBP Chest Pain 62 sr 148/87 0 Edema Present Skin color Skin None Normal Warm Dry Circulatory - Right Pulses Dorsalis Pedis Femoral Radial 2 2 2 Scale (0,1,2,3,4,d) Circulatory - Left Pulses Dorsalis Pedis Femoral Radial 2 2 Scale (0,1,2,3,4,d) Neurological State Oriented to time-place- Alert Moves all extremities person Respiration - General Respiration Rate SpO2 (%) O2 (lpm) (B/min) 18 96 0 Initial Case Assessment Cardiovascular HR Rhythm NIBP Chest Pain 62 sr 173/99 0 Edema Present Skin color Skin None Normal Warm Dry Circulatory - Right Pulses Dorsalis Pedis Femoral Radial 2 2 2 Scale (0,1,2,3,4,d) Circulatory - Left Pulses Dorsalis Pedis Femoral Radial 2 2 Scale (0,1,2,3,4,d) Neurological State Oriented to time-place- Alert Moves all extremities person Respiration - General Respiration Rate SpO2 (%) O2 (lpm) (B/min) 18 98 0 Chronological Log Time Study Chronological Log 8:20:34 Patient arrived via Bed. Positive Allens Test performed by Taurus Jefferson 8:20:35 Patient Name, D.O.B, / Armband Verified By R.N. 8:20:37 Consent signed by the physician and the patient and verified by the Parking Meter Installer staff. 8:20:38 Pre-op and post- op instructions given; patient acknowledges understanding of instructions. 8:20:42 Verbal Stimulation=2 Physical Stimulation=2 Airway=2 Respiration=2 TOTAL=8. (0=absent, 1=li mited, 2=present) Vitals capture started with the following parameters, Patient=Adult, Interval=5 min, Initial Pr pepbuc=811 mmHg, 8:26:06 Deflation Rate=5 mmHg, Cuff placed on Right Ankle 8:26:11 Patient has been NPO for More than 6Hrs. 8:26:13 Skin Breakdown-none present per patient. 8:26:25 A # 20 IV was noted in the Antecubital (right). Grade = 0 Patient arrived on IV Solutions given by Rich Henley in Right Antecubital via Periphera l IV. Pump/Drip Flow = 20 8:26:34 ml/hr using NaCl .9. Ordered by Rich Henley. 8:26:50 History and physical on the chart or being dictated. 8:26:55 Reference ECG taken 8:27:23 HR=72 bpm, OJUI=790/99 mmhg, SpO2=95.0 %, Resp=17 B/min, Griffith=2 8:28:21 Bilateral groins and right radial prepped with 2% chlorhexidine, and draped after a 3 minut e waiting time. Assessment: Initial Case, HR=62 BPM, Rhythm=sr, OQNE=713/99 mmhg, Chest Pain=0, Edema=None, [place] r=Normal, Skin = Warm, Dry Right Pulses: Joon Ped=2, Femoral=2, Radial=2 8:29:45 Left Pulses: Joon Ped=2, Femoral=2 Neurological: State=Alert, Ox3, ROMERO Respiration: Resp=18 B/min, SpO2=98 %, O2=0 lpm 8:31:51 HR=73 bpm, DMKX=412/95 mmhg, SpO2=97.0 %, Resp=13 B/min, Griffith=2 8:35:57 Pressure channel 1 zeroed. 8:36:50 HR=67 bpm, EFUF=765/96 mmhg, SpO2=94.0 %, Resp=15 B/min, Griffith=2 8:40:04 MD paged 8:41:47 HR=77 bpm, FIJW=068/101 mmhg, SpO2=98.0 %, Resp=10 B/min, Griffith=2 Time Out. Correct patient, correct procedure, correct physician, labs, allergies, and equipment verified with laborer hide house 8:46:42 team present. Fire risk assesment completed (see hard stop sheet for coding). Time Out Concu rred by MD and individual staff in procedure. 8:46:47 Presedation re-assessment performed by Parking Meter Installer RN. 8:46:50 Case Start 8:46:51 Verbal Stimulation=2 Physical Stimulation=2 Airway=2 Respiration=2 TOTAL=8. (0=absent, 1=bagley ited, 2=present) 10 mL 1% XYLOCAINE given in lab by Rich Henley in Right Radial via Subcutaneous. Ordered by Kale 8:46:59 Rich Dunne 8:47:12 0.5 mg VERSED given in lab by Bandar Christian, NANCY via Peripheral IV. Ordered by Eulogio Henley 8:47:31 HR=76 bpm, HKXC=805/99 mmhg, SpO2=95.0 %, Resp=13 B/min, Griffith=2 8:48:23 25 mcg FENTANYL given in lab by Bandar Christian, NANCY via Peripheral IV. Ordered by Nadya Henley 8:49:35 Access site was Radial Artery.Right Radial A SHEATH, FR6 TRANSRADIAL SLENDER 10CM FR 6 was advanced into the Radial (right) using the Percu rosa 8:50:16 technique. 1 units RADIAL COCKTAIL given in lab by Bandar Christian, NANCY via Radial. Ordered by Juli Henley 3400 units 8:50:32 Heparin, 200mcg Nitro. 2.5 mg Verapamil. 8:51:45 HR=76 bpm, PUEK=769/75 mmhg, SpO2=92.0 %, Resp=11 B/min, Griffith=2 A JR 4.0 INFINITI CATHETER FR 5 was advanced over a wire. OMNIPAQUE, 350 MG, 150ML 150ML was use d for 8:52:07 injections. Recorded Pressure: LV, HR=74, Condition=Condition 1 8:52:23 (Left Ventricle) LV 126/-4/7 Recorded Pressure: LV, Ao, HR=72, Condition=Condition 1 8:52:44 (Left Ventricle) LV 125/-2/8, (Aorta) Ao 111/66/85 Recorded Pressure: Ao, HR=70, Condition=Condition 1 8:53:14 (Aorta) Ao 103/60/76 8:53:25 The LCA was injected and visualized at various angles. OMNIPAQUE, 350 MG, 150ML 150ML used. After removing the current catheter a JL 3.5 INFINITI CATHETER FR 5 was advanced over a WIRE, EX CHANGE 260CM 8:54:22 3MMJ 260CM. 8:55:54 The LCA was injected and visualized at various angles. OMNIPAQUE, 350 MG, 150ML 150ML used. 8:56:44 HR=63 bpm, AIBU=467/83 mmhg, SpO2=92.0 %, Resp=12 B/min, Griffith=2 8:59:31 Catheter was removed 9:01:45 HR=60 bpm, VUSB=062/87 mmhg, SpO2=92.0 %, Resp=11 B/min, Griffith=2 Assessment: Final Case, HR=62 BPM, Rhythm=sr, CHCU=468/87 mmhg, Chest Pain=0, Edema=None, Color= Normal, Skin = Warm, Dry Right Pulses: Joon Ped=2, Femoral=2, Radial=2 9:01:49 Left Pulses: Joon Ped=2, Femoral=2 Neurological: State=Alert, Ox3, ROMERO Respiration: Resp=18 B/min, SpO2=96 %, O2=0 lpm 9:04:38 No case complications noted. 9:04:40 Cine recording checked. Radial Compression Device Used. 14 mLs of air placed in BAND, RADIAL COMPRESSION TR SHORT 24 2 4CM. Affected 9:04:56 hand 96 % O2 saturation. 9:06:48 HR=67 bpm, BNKY=872/93 mmhg, SpO2=93.0 %, Resp=12 B/min, Griffith=2 9:11:09 Patient moved to stretcher 9:11:16 Vitals capture stopped. End Study - Contrast Media Used In Study Contrast Total Opened (mL) Total Used (mL) Total Wasted (mL) Omnipaque 30 30 0 End Study - Maximum Contrast Load Max Contrast Load (mL) 286.7 End Study - Radiation Exposure Fluoro Time (minutes) 2.1 End Study - Patient Disposition Complications Transferred To Telemetry Bed
[2017-10-04] MEDS ORDERED: Sod Chloride 0.9% Inj 1,000 ML IV.CONT SCH (09:25)
--- NOTE | 2017-10-04 09:34 | P.PNCA ---
Subjective Interval history: No events overnight Post cath, doing well Physical Exam Vital signs: Vital Signs 10/03/17 12:00 10/03/17 16:00 10/03/17 22:39 Temperature 97.7 F 98.9 F 98.6 F Pulse Rate 56 L 65 74 Respiratory Rate 18 13 16 Blood Pressure 137/75 156/78 H 137/70 Pulse Oximetry 94 L 96 94 L 10/04/17 01:31 10/04/17 05:14 10/04/17 09:24 Temperature 98.7 F 98.6 F Pulse Rate 63 65 Respiratory Rate 17 16 Blood Pressure 129/74 116/66 Pulse Oximetry 93 L 97 97 Intake & Output 10/03/17 10/04/17 10/04/17 18:59 06:59 18:59 Intake Total 1000 / 1000 Balance 1000 / 1000 Intake: IV 1000 / 1000 NS Inj 1,000 ML @ 50 mls/hr IV. 1000 / 1000 SIG .Q20H TORIE Rx#:[id number] Other: # Voids 4 Date of Last Bowel Movement 10/03/17 Narrative: GENERAL: NAD, AAOx3 SKIN: Warm and dry. HEAD: Atraumatic. Normocephalic. EYES: Pupils equal and round. No scleral icterus. No injection or drainage. ENT: No nasal bleeding or discharge. Mucous membranes pink and moist. NECK: Trachea midline. No JVD. CARDIOVASCULAR: Regular rate and rhythm. RESPIRATORY: No accessory muscle use. Clear to auscultation. Breath sounds equal bilaterally. GASTROINTESTINAL: Abdomen soft, non-tender, nondistended. Hepatic and splenic margins not palpable. MUSCULOSKELETAL: Extremities without clubbing, cyanosis, or edema. No obvious deformities. NEUROLOGICAL: Awake and alert. No obvious cranial nerve deficits. Motor grossly within normal limits. Five out of 5 muscle strength in the arms and legs. Normal speech. PSYCHIATRIC: Appropriate mood and affect; insight and judgment normal. Assessment and Plan - Assessment (1) Abnormal stress test Code(s): R94.39 - Abnormal result of other cardiovascular function study Status: Acute (2) Chest pain Code(s): R07.9 - Chest pain, unspecified Status: Acute (3) Angina pectoris Code(s): I20.9 - Angina pectoris, unspecified Status: Acute (4) CKD (chronic kidney disease) Code(s): N18.9 - Chronic kidney disease, unspecified Status: Acute - Plan 1) Typical angina on multiple anti-anginals Cardiac cath showing mild CAD Con't medical management 2) RZAIA/CKD IV fluid until discharge, minimal contrast use Encouraged fluid intake while at home 3) Cardiovascularly stable for discharge Follow up with Dr. Perez as previously scheduled
--- NOTE | 2017-10-04 09:42 | MA ---
cc: Rich Henley DO DATE: 10/04/2017 PROCEDURE: Left heart catheterization, coronary angiogram, moderate sedation, 15 minutes. PREOPERATIVE DIAGNOSIS: Abnormal stress test, chest pain. POSTOPERATIVE DIAGNOSIS: Mild coronary artery disease. MEDICATIONS: Versed 0.5 mg, fentanyl 25 mcg, nitro 200 mcg, heparin 3400 units, verapamil 2.5 mg. CONTRAST USED: 30 mL. FLUOROSCOPY: 2.1 minutes. MODERATE SEDATION: 15 minutes. FRAILTY SCORE: 2. ESTIMATED BLOOD LOSS: 10 mL. PROCEDURAL SUMMARY: Melo Arnold is a pleasant 77-year-old male who sees my partner, Dr. Perez in the office and presented to [facility] due to chest congestion. This was relieved by nitroglycerin and as he previously had a stress test 4-6 months ago, which showed minimal stress-induced ischemia in the inferior wall that was treated medically and presented to [facility] Emergency Room due to chest congestion. Chest congestion was relieved by nitroglycerin. He previously was here around 4-6 months ago and had a stress test showing minimal ischemia in the inferior wall. He was recommended medical therapy at that time. As he has had a stress test, which is abnormal and still had chest pain, it was felt that he should undergo cardiac catheterization. Risks, benefits and alternatives were explained to him and he consented as such. He was brought to the lab and prepped in the usual sterile fashion. The right radial artery was accessed using a modified Seldinger technique and placement of a 5/6 [place] slender sheath. This was easily aspirated and flushed. A JR4 was advanced over a J-wire to the ascending aorta and across the aortic valve for measurement of left ventricular pressure. This was pulled back across the aortic valve showing no significant gradient of aortic stenosis. A JR4 was used for selective angiography of the right coronary artery system. This was exchanged out for a JL3.5, which was used for selective angiography of the left coronary artery system. JL3.5 was removed over a J wire. A radial band was placed over the arteriotomy site for hemostasis. The patient left the ballistics laboratory gunsmith cardiovascularly stable. LEFT MAIN: Normal-sized vessel with adequate reflux. It bifurcates into an LAD and circumflex. LAD: Normal-sized vessel with no significant disease throughout the proximal portion. Mid portion has 10% disease and distally no significant disease. It gives off 3 moderate sized diagonals which are overall tortuous, but no significant disease. Left circumflex is a moderate to large sized vessel with some tortuosity throughout the proximal portion, but no significant disease. It gives off 2 obtuse marginals, which the first one is a large marginal with an upper and lower branch and tortuosity, but no disease. The second is somewhat smaller. RCA: Normal-sized vessel which is tortuous throughout the proximal and distal portions. No disease noted throughout the vessel. LVEDP 8. IMPRESSIONS: 1. Abnormal stress test with minimal ischemia the inferior wall (low risk stress test). 2. Chest pain relieved by nitroglycerin. 3. Mild coronary artery disease. RECOMMENDATIONS: 1. Mr. Arnold presented with atypical features with chest congestion, but this was relieved by nitroglycerin. During his cardiac catheterization, he was found to have minimal coronary artery disease and recommended continued medical therapy. 2. Possible other causes of this could be along the lines of hypertension with activity causing an increase in his LVEDP versus possible GI symptoms as this could also be relieved with nitroglycerin. 3. He will be discharged later today. 4. He will followup with Dr. Perez as previously scheduled. Thank you for allowing me to see Melo Arnold. If there are any questions, please do not hesitate to call. Rich Henley, DO VGP/DL , 09:18 AM , 09:41 AM
--- NOTE | 2017-10-04 15:31 | P.DS ---
Date of admission: 10/01/17 15:56 Primary care physician: Imtiaz Ordonez Attending physician on discharge: Khushboo Deleon Anticipated date of discharge: 10/04/17 Brief History from admission: 77-year-old black male being admitted for chest pain and renal insufficiency. 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 As he continued to work the pain persisted. When he stopped laboring and rest, the pain went away. Describes the pain as a pressure. Reports very mild shortness of breath associated with it. Denies any nausea vomiting. Denies any fevers or chills. Denies any lower extremity edema. His brought him to the emergency department. In the ER he did have an EKG which showed inverted T waves in the anterolateral leads but these actually appear less pronounced than his E EKG done about 6-7 months ago. Troponin was mildly elevated at 0.05 but the patient's renal function was significantly impaired with a creatinine greater than 2.7. Patient says he does not take an aspirin daily, has no specific reason for it but thinks that he just was not continued on it by his outpatient physicians. He does endorse however taking his Lipitor regularly. DS: Diagnosis - Discharge Diagnosis (1) Abnormal stress test Status: Acute (2) Angina pectoris Status: Acute DS: Medications - Discharge Medications Prescriptions: aspirin 81 mg PO DAILY #30 tab DS: Summary Hospital Course: 77-year-old male with history of HTN, HLD, CKD, presents with acute onset of chest pain Chest pain/Angina: Acute, relieved by nitroglycerin and rest, chest pains resolved. EMR reviewed, nuclear stress test 02/17/17 showed minimal stress- induced ischemia, borderline significance. Troponins trended, 0.05, 0.04, 0.05, mild elevation possibly secondary to CKD. EKG reviewed, shows ST inversions in V2 to V6; although unchanged from previous EKGs. Monitored on telemetry. Give aspirin, BB, statin, nitro prn, IV morphine prn. With recent mildly abnormal Lexiscan and recurrent chest pain, consulted cardiology. Discussed with Dr. Henley. Cardiac catheterization done 10/04 showed mild coronary artery disease, recommends medical therapy; cleared for discharge; f/up with Dr. [place]. RAZIA on CKD stage III: Cr 2.79 upon arrival, suspect secondary to dehydration. Give IVF hydration. Avoid nephrotoxins. Holding patient's lisinopril and lasix. Monitor BMP, repeat labs show improvement with Cr 1.50, likely patient's baseline, decreased fluid rate from 100cc to 50cc/hr. Encouraged to continue oral hydration after discharge. Discontinued patient's lasix and lisinopril as BP has been well controlled off these meds without any signs of fluid overload. Hypertension: BP currently well controlled. Continue patient's metoprolol, norvasc. holding lisinopril and lasix with RAZIA. Monitor BP, adjust antihypertensives as needed. BP well controlled, d/c lisinopril at discharge. Hyperlipidemia: chronic. Continue patient's statin. - Time Spent with Patient Total time spent providing and/or coordinating discharge services: Greater than 30 minutes Exam Vital signs: Vital Signs 10/03/17 16:00 10/03/17 22:39 10/04/17 01:31 Temperature 98.9 F 98.6 F 98.7 F Pulse Rate 65 74 63 Respiratory Rate 13 16 17 Blood Pressure 156/78 H 137/70 129/74 Pulse Oximetry 96 94 L 93 L 10/04/17 05:14 10/04/17 09:24 Temperature 98.6 F Pulse Rate 65 Respiratory Rate 16 Blood Pressure 116/66 Pulse Oximetry 97 97 Intake & Output 10/03/17 10/04/17 10/04/17 18:59 06:59 18:59 Intake Total 1000 / 1000 Balance 1000 / 1000 Intake: IV 1000 / 1000 NS Inj 1,000 ML @ 50 mls/hr IV. 1000 / 1000 SIG .Q20H TORIE Rx#:[id number] Other: # Voids 4 Date of Last Bowel Movement 10/03/17 Narrative: GENERAL: Well-nourished, well-developed pleasant elderly male patient in [facility]. SKIN: Warm and dry. No rash. HEENT: Normocephalic. Atraumatic. Pupils equal and round. Mucous membranes pink and moist. CARDIOVASCULAR: Regular rate and rhythm. No murmur appreciated. RESPIRATORY: No accessory muscle use. Clear to auscultation. Breath sounds equal bilaterally. GASTROINTESTINAL: Abdomen soft, non-tender, nondistended. MUSCULOSKELETAL: No obvious deformities. Extremities without clubbing, cyanosis , or edema. NEUROLOGICAL: Awake and alert. No obvious cranial nerve deficits. Motor grossly within normal limits. Moving all extremities spontaneously. Normal speech. PSYCHIATRIC: Appropriate mood and affect; insight and judgment normal. Results Procedures completed during hospitalization: 10/04/17 - cardiac catheterization by Dr. Henley showed mild coronary artery disease; no intervention performed; recommended continue medical therapy Labs on day of discharge: Labs from last 24 hours 10/04/17 04:35 Sodium 141 Potassium 4.0 Chloride 110 H Carbon Dioxide 23.4 Anion Gap 8 BUN 16 Creatinine 1.50 H Estimated GFR 55 L Random Glucose 84 Calcium 8.7 Discharge Plan - Discharge Disposition Patient Disposition: Discharge Home - Discharge Condition Condition: Stable - Discharge Order Discharge Orders: Discharge Order (Routine); Ordered 10/04/17 Ordered By: Nahed Camp - Discharge Details Anticipated Discharge Date: 10/04/17 - Physicians Team Primary Care Provider: Imtiaz Ordonez Attending Provider: Khushboo Deleon Other Providers: Rich Henley DO - Rxs /Orders / Referrals /Forms Prescriptions: New aspirin 81 mg Tablet,Delayed Release (Dr/Ec) 81 mg PO DAILY Qty: 30 RF: 0 Continue amlodipine 5 mg Tablet 5 mg PO DAILY atorvastatin 20 mg Tablet 20 mg PO HS metoprolol tartrate 25 mg Tablet 25 mg PO BID Discontinued clonidine HCl 0.1 mg Tablet 0.1 mg PO PRN PRN (Reason: symptomatic hypertension) furosemide 20 mg Tablet 20 mg PO DAILY lisinopril 40 mg Tablet 40 mg PO BID Referrals: Jessica Perez MD [Physician] - See Instructions Imtiaz Ordonez MD [Primary Care Provider] - See Instructions - Discharge Instructions Print Language: Slovak Patient Printed Instructions: Left Heart Catheterization (DC), Heart Healthy Diet (DC), Preventing Infections (GEN), How To Wash Your Hands (DC), Heart Catheterization (DC), After Radial Heart Catheterization (GEN) Additional Instructions: FOLLOW ALL DISCHARGE INSTRUCTIONS. CONTINUE ALL PREVIOUSLY PRESCRIBED MEDICATIONS. CALL FOR FOLLOW UP APPOINTMENT. RETURN TO ER FOR ANY NEW OR ACUTE SYMPTOMS. - Post Discharge Care Plan Care Plan Goals: Your Health Problems: Goals to Promote Your Health: * To prevent worsening of your condition * To maintain your health at the optimal level Directions to Meet Your Goals: * Take your medications as prescribed * Follow your dietary instruction * Follow activity as directed * Keep your appointments as scheduled * Take your immunizations and boosters as scheduled * If your symptoms worsen call your PCP * If no PCP go to Urgent Care or Emergency Room Smoking is dangerous to your health. Avoid second hand smoke. You may reach the 24-hour crisis hotline for domestic abuse at . - Discharge Information Discharge Date/Time: 10/04/17 14:00
== END 2017-10-04 14:00 | disposition home or self-care (01) ==
LOC: NEPHCDU 15:55 → HCIS 15:55
PROVIDERS: ADMIT Hospitalist; ATTEND Hospitalist